=== PATIENT | female | born 1995 | race Two or more races ===

== ENCOUNTER 2022-11-08 06:42 | Inpatient (IN) | payer BC, OTHER ==
[~2022-11-08] VITALS: Ht 162.6 cm; Wt 75.7 kg
[2022-11-08] MEDS ORDERED: BETAMETHASONE ACET (30mg/5ml) 5ml Vial 6mg/ml IM ONE (07:15)
[2022-11-08 07:20] LABS: Urine Bacteria FEW /hpf (None Seen); Urine WBC 14 /hpf (0 - 5)
[2022-11-08 07:27] LABS: Urine Specific Gravity 1.008 (1.001-1.035)
[2022-11-08 07:28] LABS: Urine Blood 1+ /uL (Negative)
[2022-11-08] MEDS ORDERED: AMPICILLIN SOD 2GM INJ 2 GM in SODIUM CHL 0.9% 100 ML IV ONE (07:30)
[2022-11-08] MEDS ORDERED: LACTATED RINGER'S 1,000 ML IV SCH (07:30)
[2022-11-08] MEDS ORDERED: MAGNESIUM SULFATE 40MG/ML 1,000 ML IV SCH (07:45)
[2022-11-08] MEDS ORDERED: MAGNESIUM SULFATE 100 ML IV ONE (07:45)
[2022-11-08 07:59] LABS: Alcohol, Urine < 3.0 mg/dL (0-10); Amphetamine Screen, Urine NEGATIVE (NEGATIVE); Barbiturate Scree,Urine NEGATIVE (NEGATIVE); Benzodiazephine Screen, Urine NEGATIVE (NEGATIVE); Cannabinoid Screen, Urine NEGATIVE (NEGATIVE); Cocaine Screen, Urine NEGATIVE (NEGATIVE); Opiate Scree,Urine NEGATIVE (NEGATIVE); Phencyclidine Screen, Urine NEGATIVE (NEGATIVE)
[2022-11-08 08:07] LABS: Basophils # (auto) 0 10 ^3/uL (0-0.2); Basophils % (auto) 0.2 % (0.0-2.0); Eosinophils # (auto) 0.1 10 ^3/uL (0-0.8); Eosinophils % (auto) 0.8 % (0.0-7.0); Hematocrit 31.4 % (36.0-46.0); Hemoglobin 10.4 g/dL (12.2-16.2); Lymphocytes # (auto) 1.7 10 ^3/uL (0.4-5.4); Lymphocytes % (auto) 24.4 % (10.0-50.0); Mean Corpuscular Volume 81.6 fL (80.0-100.0); Monocytes # (auto) 0.7 10 ^3/uL (0-1.3); Neutrophils # (auto) 4.6 10 ^3/uL (1.6-8.6); Neutrophils % (auto) 64.6 % (37.0-80.0); Nucleated Red Blood Cells % 0.1 %; Red Blood Cells 3.85 10^6/uL (4.0-5.20); Red Cell Distribution Width 14.5 % (11.8-14.3); White Blood Cell 7.1 10^3/uL (4.4-10.8)
[2022-11-08 08:19] LABS: Albumin 2.7 g/dL (3.4-5.0); INR 0.93 (0.9-1.15); Partial Thromboplastin Time 28.7 sec (24.6-33.4); Potassium 3.7 mmol/L (3.5-5.1)
[2022-11-08 08:24] LABS: BUN/Creatinine Ratio 9.3 (10.0-20.0); Bilirubin, Total 0.2 mg/dL (0.2-1.0); Total Protein 7.1 g/dL (6.4-8.2)
== END 2022-11-08 09:04 | disposition home or self-care (01) | DRG 833 ==
LOC: LDRP 06:42 → OBSVTOIN 07:10
PROVIDERS: ADMIT Obstetrics & Gynecology; ATTEND Obstetrics & Gynecology
DX: O42.913 Preterm premature rupture of membranes, unspecified as to length of time between rupture and onset of labor, third trimester (principal); Z3A.29 29 weeks gestation of pregnancy; O24.419 Gestational diabetes mellitus in pregnancy, unspecified control
CPT/HCPCS: 36415; 59025; 76805; 80053; 80307; 81001; 81002; 82948; 82962; 83735; 84112; 85025; 85610; 85730; 86850; 86900; 86901; 94760; 96360; 96361; 96365; 96366; 96372; G0378